=== PATIENT | female | born 2000 | race Caucasian/White ===

== ENCOUNTER 2023-06-04 23:24 | Emergency (ER) | payer BC ==
[2023-06-05] MEDS ORDERED: Diazepam 5 MG TAB ONE (00:07)
== END 2023-06-05 00:14 | disposition home or self-care (01) ==
LOC: MADERS 23:24
DX: K08.89 Other specified disorders of teeth and supporting structures (principal); G43.909 Migraine, unspecified, not intractable, without status migrainosus; M41.9 Scoliosis, unspecified; F41.9 Anxiety disorder, unspecified; F17.290 Nicotine dependence, other tobacco product, uncomplicated
CPT/HCPCS: 99283